=== PATIENT | female | born 1985 | race Caucasian/White ===

== ENCOUNTER 2018-08-16 09:17 | Day surgery (SDC) | payer MEDICAID ==
[~2018-08-16] VITALS: Ht 160 cm; Wt 120.1 kg
[2018-08-16] MEDS ORDERED: BENA1TAB13 PO (11:03)
[2018-08-16 11:11] VITALS: Ht 160 cm; Wt 120.1 kg
[2018-08-16 11:12] VITALS: BP 109/75; PULSE 102; RESP 16
[2018-08-16] MEDS ORDERED: MIDAZOLAM 1 MG/ML 2 ML INJ ONE (11:50)
[2018-08-16] MEDS ORDERED: HEPARIN 1000 UNITS/ML 10 ML INJ ONE (11:50)
[2018-08-16] MEDS ORDERED: LIDOCAINE 1%/EPI (1:100,000) (MDV) 20 ML ONE (11:50)
[2018-08-16] MEDS ORDERED: HEPARIN 1000 UNITS/NS (A-LINE) 1,000 ML ONE (11:50)
[2018-08-16] MEDS ORDERED: FENTAnyl 50 MCG/ML VIAL ONE (11:50)
[2018-08-16] MEDS ORDERED: POLYMYXIN/BACITRACIN 1L IRRIG ONE (11:53)
[2018-08-16] MEDS ORDERED: CEFAZOLIN 1 GM/50 ML (PMX) 50 ML IVPB ONE (11:55)
[2018-08-16] MEDS ORDERED: IODIXANOL LOCM 100 ML BTL ONE (12:39)
[2018-08-16 14:54] VITALS: BP 112/55; PULSE 92; RESP 18
--- NOTE | 2018-08-16 14:57 | HPN ---
Date/Time of Note Date/Time of Note DATE: 08/16/18 TIME: 14:57 Interval H&P Admission Note Pt. seen H&P reviewed: No system changes RACHEL GUIDRY MD Aug 16, 2018 14:57
--- NOTE | 2018-09-07 17:05 | RADRPT ---
PROCEDURE: FLUOROSCOPIC AND ULTRASONOGRAPHIC-GUIDED PLACEMENT OF LEFT CHEST PORT. CLINICAL INDICATION: Venous access for chemotherapy. TECHNIQUE: INTRAPROCEDURE MEDICATIONS: PB antibiotic solution 40 cc applied topically. 1 gram Ancef intravenousl y, intra-op. TECHNIQUE: Informed consent was obtained. The procedure, risks, benefits, complications and alternati ves were explained to the patient. Risks including bleeding, infection, and pneumothorax were explai pamela. The patient understood and was willing to proceed. A procedural pause was performed. The patient's name, date of , and procedure to be performed we re verified. The central line was inserted with all elements of maximal sterile barrier technique. All of the foll owing were used: head covering, facial mask, sterile gown, sterile gloves, a large sterile sheet, carlton d hygiene, and 2% chlorhexidine for cutaneous antisepsis. The left neck and anterior/superior chest wall were prepped and draped in usual sterile fashion. Limited sonography of the left neck was then performed. Noted is a patent left internal jugular vein. Following the local injection of 1% lidocaine, the left internal jugular vein was punctured under son ographic guidance with a 20-gauge needle through which a 0.018 inch floppy tip guidewire was advanced into the superior vena cava, then the right atrium with fluoroscopic guidance. The tract was dilat ed to 5 Pakistani and the wire was then replaced with a 0.035 in guidewire. 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 A site just inferior to the clavicle in the superior anterior left chest wall was localized. One perc ent lidocaine was used as local anesthesia. A transverse 2.5 cm incision was made utilizing a 15 blad e scalpel. Utilizing blunt dissection a subcutaneous pocket was created inferior to the incision. The cavity was flushed with approximately 40 cc of PB antibiotic solution. The catheter was tunneled underneath the skin from the newly created pocket to the puncture site in t he neck. The central line catheter was pulled through the tract. Serial dilatation was then performed and a 7 Pakistani peel away sheath was introduced. The catheter was then advanced through the peel-away sheath until the tip was positioned in the right atrium. The peel-away sheath was removed. The marie ter was flushed, clamped, and cut to the appropriate length. The 6.6 Pakistani catheter was then connected to the [employer] power port. The port was then placed into the pocket. Prior to closing the instrument and sponge count was verified and was correct. The s ubcutaneous tissue was closed with 3-0 Vicryl interrupted suture. The skin at the site of the pocket and in the neck was closed with 4-0 Vicryl suture in a running subcuticular technique. The port was f lushed with 1500 units of heparin in 1.5 cc utilizing a Moralez needle. The needle was removed. A dress ing was applied. Specimens: None. Blood loss: 5 ml. Complications: None. Sap Ppm Consultant: None Anesthesia: Local and moderate sedation. Graft/Implant: Left chest port. COMPARISON: None. FINDINGS: Ultrasound images were recorded and stored in the patient's medical record. Final radiographic images demonstrate the tip of the catheter in the upper right atrium. A total of 5.9minutes of fluoroscopy time was used. The ultrasound images demonstrate the needle entering the j ugular vein. Several images of the chest were obtained with image intensifier. IMPRESSION: 1. Successful ultrasonographic and fluoroscopic guided placement of left chest port. RPTAT: QQ Physician Garry Date Time Electronically viewed and signed by Physician Garry on 09/07/2018 17:05 RD/
== END 2018-08-16 15:40 | disposition home or self-care (01) ==
LOC: SDS 09:17
PROVIDERS: ATTEND Nuclear Medicine
DX: C50.911 Malignant neoplasm of unspecified site of right female breast (principal)
CPT/HCPCS: 36561; C1788; C1887; J0690; J1644; J2250; J3010; Q9967; Z7610